=== PATIENT | male | born 1985 | race African-American/Black ===

== ENCOUNTER 2023-01-08 15:48 | Outpatient (CLI) | payer OTHER, SELFPAY ==
[2023-01-08 20:17] LABS: Hepatitis B Surface Antigen* Negative (Negative)
[2023-01-08 20:29] LABS: HIV 1/2/P24 Combo Screen* Negative (Negative)
[2023-01-08 20:35] LABS: Hepatitis C Virus Antibody* Negative (Negative)
[2023-01-08 21:36] LABS: Hepatitis B Surface Antibody* Positive (Negative)
[2023-01-11 02:09] LABS: Rapid Plasma Reagin (RPR) Non Reactive (Non Reactive)
== END 2023-01-08 15:49 | disposition home or self-care (01) ==
PROVIDERS: PCP Family Medicine; Visit Provider Family Medicine
DX: Z11.3 Encounter for screening for infections with a predominantly sexual mode of transmission (principal)
CPT/HCPCS: 86592; 86703; 86706; 86803; 87340

== ENCOUNTER 2023-01-11 08:18 | Outpatient (CLI) | payer OTHER, SELFPAY ==
[2023-01-11 11:32] LABS: Chlamydia DNA Amplified* NOT DETECTED (No Detected); GC DNA Amplified* NOT DETECTED (No Detected)
== END 2023-01-11 08:19 | disposition home or self-care (01) ==
LOC: NFLDREF 08:18
PROVIDERS: PCP Family Medicine; Visit Provider Family Medicine
DX: Z11.3 Encounter for screening for infections with a predominantly sexual mode of transmission (principal)
CPT/HCPCS: 87491; 87591

== ENCOUNTER 2023-06-10 10:05 | Outpatient (CLI) | payer BC, SELFPAY ==
--- NOTE | 2023-06-10 08:53 | W.ANESCHARGE ---
Anesthesia Charges Start Date/Time Anesthesia Start Date: 06/10/23 Anesthesia Start Time: 10:44 Stop Date/Time Anesthesia Stop Date: 06/10/23 Anesthesia Stop Time: 11:11
--- NOTE | 2023-06-10 08:53 | PM.ANHP ---
HPI - Pre-Anesthesia History of Present Illness Time Seen by Provider: 10:34 Date Seen: 06/10/23 Date of service: 06/10/23 Source: patient and old records reviewed Review of Systems Status of ROS Reports: 10 or more systems reviewed and unremarkable except as noted in History and below [facility] Medical History (Updated 04/24/23 @ 13:19 by Nicci Smith MD) Obesity (BMI 30-39.9) ?E66.9 - Obesity, unspecified (ICD-10) Pre-diabetes (2015) ?R73.03 - Prediabetes (ICD-10) History of sleep disturbance ?Z86.69 - Personal history of other diseases of the nervous system and sense organs (ICD-10) History of colonic polyps ?Z86.010 - Personal history of colonic polyps (ICD-10) Elevated liver function tests ?R79.89 - Other specified abnormal findings of blood chemistry (ICD-10) Dyslipidemia ?E78.5 - Hyperlipidemia, unspecified (ICD-10) Surgical History (Updated 12/31/22 @ 14:13 by Nicci Smith MD) No history of previous surgery Family History (Updated 04/24/23 @ 13:31 by Nicci Smith MD) Sister Breast cancer, Onset Age: 55 Family/Other Colon polyps Mother Diabetes Stroke High blood pressure Brother Peptic ulcer Social History (Updated 04/24/23 @ 13:32 by Nicci Smith MD) Narrative: 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, originally from [facility] [place], [facility], 3 kids Walks 5 days a week nonsmoker, rarely consumes alcohol Smoking Status: Never smoker Little interest or pleasure in doing things: not at all Feeling down, depressed, or hopeless: not at all Meds Home Medications and Allergies Home Medications Medication Instructions Recorded Confirmed Type diphenhydramine 25 1 tab PO QHS PRN 04/24/23 04/24/23 History mg-acetaminophen 500 mg tablet (Tylenol PM Extra Strength) Allergies Allergy/AdvReac Type Severity Reaction Status Date / Time No Known Drug Allergies Allergy Verified 04/24/23 12:44 Exam Const Documenting provider has reviewed patient's vital signs: yes Common normals: no apparent distress, oriented x3, healthy appearing, alert and well nourished General appearance: cooperative and comfortable Orientation/consciousness: Yes awake HENMT Common normals: normocephalic Head and scalp: normocephalic Neck & C-Spine Common normals: full ROM Chest Chest: symmetrical chest wall rise Resp Common normals: normal respiratory effort, no retractions, no use of accessory muscles and clear to auscultation bilaterally Auscultation: clear to auscultation bilaterally Cardio Common normals: regular rate, regular rhythm, S1 normal heart sound, S2 normal heart sound and no murmurs Rate: regular rate Rhythm: regular rhythm Heart sounds: S1 normal and S2 normal Neuro Common normals: oriented x3 Sensorium/orientation: awake and alert Assessment and Plan Assessment and plan (1) History of colonic polyps: Status: Acute Plan ok to proceed with sedation
--- NOTE | 2023-06-10 11:11 | W.ANESCHARGE ---
Anesthesia Charges Start Date/Time Anesthesia Start Date: 06/10/23 Anesthesia Start Time: 10:44 Stop Date/Time Anesthesia Stop Date: 06/10/23 Anesthesia Stop Time: 11:11
--- NOTE | 2023-06-10 11:14 | W.ANESCHARGE ---
Anesthesia Charges Start Date/Time Anesthesia Start Date: 06/10/23 Anesthesia Start Time: 10:44 Stop Date/Time Anesthesia Stop Date: 06/10/23 Anesthesia Stop Time: 11:11
== END 2023-06-10 10:06 | disposition home or self-care (01) ==
LOC: OP CLINIC 10:06
PROVIDERS: PCP Family Medicine; Visit Provider Internal Medicine
DX: K62.89 Other specified diseases of anus and rectum (principal); K64.4 Residual hemorrhoidal skin tags; K64.8 Other hemorrhoids
CPT/HCPCS: 00811; 00812; 45378; J2704

== ENCOUNTER 2023-07-22 07:29 | Outpatient (CLI) | payer BC, SELFPAY | END 2023-07-22 07:30 | disposition home or self-care (01) | LOC: NFLDREF 07-24 11:22 | PROVIDERS: PCP Family Medicine; Referring Provider Family Medicine; Visit Provider Family Medicine | DX: I10 Essential (primary) hypertension (principal); E78.5 Hyperlipidemia, unspecified; E11.9 Type 2 diabetes mellitus without complications; E66.9 Obesity, unspecified; R79.89 Other specified abnormal findings of blood chemistry; Z13.21 Encounter for screening for nutritional disorder | CPT/HCPCS: 80053; 80061; 82043; 82570 ==

== ENCOUNTER 2023-10-28 07:29 | Outpatient (CLI) | payer BC, SELFPAY | END 2023-10-28 07:30 | disposition home or self-care (01) | LOC: NFLDREF 10:42 | PROVIDERS: PCP Family Medicine; Referring Provider Family Medicine; Visit Provider Family Medicine | DX: E11.9 Type 2 diabetes mellitus without complications (principal); E78.5 Hyperlipidemia, unspecified; I10 Essential (primary) hypertension; Z13.21 Encounter for screening for nutritional disorder | CPT/HCPCS: 80053; 80061; 82306 ==

== ENCOUNTER 2023-11-18 08:24 | Outpatient (CLI) | payer BC, SELFPAY | END 2023-11-18 08:25 | disposition home or self-care (01) | LOC: NFLDREF 11-19 16:19 | PROVIDERS: PCP Family Medicine; Referring Provider Family Medicine; Visit Provider Family Medicine | DX: I10 Essential (primary) hypertension (principal) | CPT/HCPCS: 80048 ==

== ENCOUNTER 2024-01-27 07:40 | Outpatient (CLI) | payer BC, SELFPAY | END 2024-01-27 07:41 | disposition home or self-care (01) | LOC: NFLDREF 02-06 07:37 | PROVIDERS: PCP Family Medicine; Referring Provider Family Medicine; Visit Provider Family Medicine | DX: E11.9 Type 2 diabetes mellitus without complications (principal); E78.5 Hyperlipidemia, unspecified; I10 Essential (primary) hypertension; R79.89 Other specified abnormal findings of blood chemistry | CPT/HCPCS: 80053; 80061; 82306 ==

== ENCOUNTER 2024-04-28 07:41 | Outpatient (CLI) | payer BC, SELFPAY ==
--- OUTSIDE RECORDS SUMMARY | 2024-04-29 10:20 | XMS_ITS | Clinical Summary ---
Author Organization [employer] [facility] Address [place], [place] [address] Care Team Providers Care Valuation Consultant Name Role Phone None Primary Care Provider Unavailabl e Allergies No known active allergies Medications Medication Sig Dispensed Refills Start Date End Date Status amLODIPine (NORVASC) 5 mg tablet Take 5 mg by mouth two times daily. 09/09/2023 Active metFORMIN (GLUCOPHAGE) 500 mg tablet Take 500 mg by mouth two times daily with meals. 07/24/2023 Active rosuvastatin (CRESTOR) 5 mg tablet Take 5 mg by mouth once daily. 07/24/2023 Active atovaquone-proguani l, 250-100 mg, (MALARONE) 250-100 mg tabletIndications:P harmacologic therapy Take 1 Tablet by mouth once daily. Begin 1-2 days before and continue until 1 week after exposure for prevention of malaria. 30 Tablet 10/09/2023 Active Active Problems Problem Noted Date Diagnosed Date COVID-19 virus infection 12/19/2021 Elevated BP without diagnosis of hypertension Immunizations Name Administration Dates Next Due COVID-19 vaccine (Moderna 100mcg/0.5mL) PF, MDV 03/17/2021,02/17/2021 Hepatitis A (Adult) 10/09/2023 Hepatitis B (Adult) 08/20/2018,12/05/2017,2016 Inactivated Polio Vaccine 10/09/2023 Influenza Virus, Unspecified 10/16/2011,09/29/20 10 Influenza, IIV4 10/09/2023,,10/09/2019,08/20,11/07/2016,08/30/2015 Influenza, Whole Virus 12/05/2017 MMR 12/19/2006(Deferred: Patient Ref used) MMRV 12/19/2006 Measles 10/04/2003 Measles-Rubella 10/04/2003 Meningococcal Vaccine (Menveo) 10/09/2023 Rubella 10/04/2003 Td (Age >=7 Years) 09/06/2003 Td, Preservative Free (age >= 7 Years) Tdap 12/23/2012 Typhoid (injectable) 10/09/2023 Varicella Vaccine 07/25/2017,12/23/2012,12/07/19 12 Yellow Fever 10/09/2023 Social History Tobacco Use Types Packs/Day Years Used Date Smoking Tobacco: Never Smokeless Tobacco: Never Alcohol Use Standard Drinks/Week Comments Not Currently 0 (1 standard drink = 0.6 oz pur e alcohol) Social Connections Answer Date Recorded Frequency of Communication with Friends and Fami ly Not on file 12/19/2021 Financial Resource Strain Answer Date R ecorded Difficulty of Paying Living Expenses Not on file 12/19/2021 Difficulty of Paying Living Expenses Not on file 12/19/2021 Sex and Gender Information Value Date Recorded Sex Assigned at Not on file Gender Identity Not on file Sexual Orientation Not on file Obstetrics History Last Filed Vital Signs Vital Sign Reading Time Taken Comments Blood Pressure 138/80 10/09/2023 1:31 PM UPHOLSTERY COVERS INSPECTOR Pulse 80 10/09/2023 1:31 PM UPHOLSTERY COVERS INSPECTOR Temperature - - Respiratory Rate - - Oxygen Saturation 97% 12/19/2021 11:50 AM UPHOLSTERY COVERS INSPECTOR Inhaled Oxygen Concentration - - Weight 116.6 kg (257 lb) 10/09/2023 1:31 PM UPHOLSTERY COVERS INSPECTOR Height 177.8 cm (5' 10) 10/09/2023 1:31 PM UPHOLSTERY COVERS INSPECTOR Body Mass Index 36.88 10/09/2023 1:31 PM UPHOLSTERY COVERS INSPECTOR Plan of Treatment Health Maintenance Due Date Last Done Comments Depression screening for age 12+ 1995 HIV for age 15-65 1998 Hepatitis C screening for age 18-79 2001 Lipids for age 35-44 2018 COVID-19 vaccine series ( season) 2023 03/17/2021, 02/17/2021 Influenza for age 9-49 2024 3, 09/15/2021, 10/09/2019, Additional history exists BMI (ht and wt on same day) for age 18+ 10/09/2024 10/09/2023 Tetanus booster 2032 2022, 12/03, 09/06/2003 Tdap Completed 12/23/2012 Pneumococcal series for age 6-64 Aged Out No longer eligible based on patient's age to complete this topic Care Teams Valuation Consultant Relationship Specialty Start Date End Date None . PCP - General 12/19/21
== END 2024-04-28 07:42 | disposition home or self-care (01) ==
LOC: NFLDREF 04-29 10:09
PROVIDERS: PCP Family Medicine; Referring Provider Family Medicine; Visit Provider Family Medicine
DX: E78.5 Hyperlipidemia, unspecified (principal); R79.89 Other specified abnormal findings of blood chemistry; I10 Essential (primary) hypertension; E11.9 Type 2 diabetes mellitus without complications; M81.0 Age-related osteoporosis without current pathological fracture
CPT/HCPCS: 80053; 80061; 82043; 82306; 82570

== ENCOUNTER 2024-07-27 07:28 | Outpatient (CLI) | payer BC, SELFPAY ==
--- OUTSIDE RECORDS SUMMARY | 2024-07-31 00:10 | XMS_ITS | Clinical Summary ---
Author Organization [employer] [facility] Address [place], [place] [address] Care Team Providers Care Vacuum Cooker Operator Name Role Phone None Primary Care Provider [...] Comments Blood Pressure 138/80 10/09/2023 1:31 PM WASTE PAPER HAMMERMILL OPERATOR Pulse 80 10/09/2023 1:31 PM WASTE PAPER HAMMERMILL OPERATOR Temperature - - Respiratory Rate - - Oxygen Saturation 97% 12/19/2021 11:50 AM WASTE PAPER HAMMERMILL OPERATOR Inhaled Oxygen Concentration - - Weight 116.6 kg (257 lb) 10/09/2023 1:31 PM WASTE PAPER HAMMERMILL OPERATOR Height 177.8 cm (5' 10) 10/09/2023 1:31 PM WASTE PAPER HAMMERMILL OPERATOR Body Mass Index 36.88 10/09/2023 1:31 PM WASTE PAPER HAMMERMILL OPERATOR Plan of Treatment Health Maintenance Due Date [...] age to complete this topic Care Teams Vacuum Cooker Operator Relationship Specialty Start Date End Date None . PCP - General 12/19/21
== END 2024-07-27 07:29 | disposition home or self-care (01) ==
LOC: NFLDREF 07-31 00:06
PROVIDERS: PCP Family Medicine; Referring Provider Family Medicine; Visit Provider Family Medicine
DX: E78.5 Hyperlipidemia, unspecified (principal); I10 Essential (primary) hypertension; E11.9 Type 2 diabetes mellitus without complications
CPT/HCPCS: 80053; 80061

== ENCOUNTER 2024-11-02 07:54 | Outpatient (CLI) | payer BC, SELFPAY ==
--- OUTSIDE RECORDS SUMMARY | 2024-11-03 07:52 | XMS_ITS | Clinical Summary ---
Author Organization [employer] [facility] Address [place], [place] [address] Care Team Providers Care Supervisor [employer]aking [employer] Name Role Phone None Primary Care Provider [...] Influenza, IIV4 10/09/2023,,10/09/2019,08/20,11/07/2016,08/30/2015 Influenza, Whole Virus 12/05/2017 MENINGOCOCCAL VACCINE 2 VIAL [id number] (MENVEO) 10/09/2023 MMR 12/19/2006(Deferred: Patient Ref used) MMRV 12/19/2006 Measles 10/04/2003 Measles-Rubella 10/04/2003 Rubella 10/04/2003 Td (Age >=7 Years) 09/06/2003 [...] Comments Blood Pressure 138/80 10/09/2023 1:31 PM BAND TUMBLER Pulse 80 10/09/2023 1:31 PM BAND TUMBLER Temperature - - Respiratory Rate - - Oxygen Saturation 97% 12/19/2021 11:50 AM BAND TUMBLER Inhaled Oxygen Concentration - - Weight 116.6 kg (257 lb) 10/09/2023 1:31 PM BAND TUMBLER Height 177.8 cm (5' 10) 10/09/2023 1:31 PM BAND TUMBLER Body Mass Index 36.88 10/09/2023 1:31 PM BAND TUMBLER Plan of Treatment Health Maintenance Due Date Last Done Comments Depression screening for age 12+ 1995 HIV for age 15-65 1998 Hepatitis C screening for age 18-79 2001 Lipids for age 35-44 2018 COVID-19 vaccine series ( season) 2024 03/17/2021, 02/17/2021 Influenza for age 9-49 2024 3, 09/15/2021, 10/09/2019, Additional history exists BMI (ht and wt on same day) for age 18+ 10/09/2024 10/09/2023 Tetanus booster 2032 2022, 12/03, 09/06/2003 Tdap Completed 12/23/2012 Pneumococcal series for age 6-64 Aged Out No longer eligible based on patient's age to complete this topic Care Teams Supervisor [employer]il[employer]aking Shop Relationship Specialty Start Date End Date None . PCP - General 12/19/21
== END 2024-11-02 07:55 | disposition home or self-care (01) ==
LOC: NFLDREF 11-03 07:51
PROVIDERS: PCP Family Medicine; Referring Provider Family Medicine; Visit Provider Family Medicine
DX: I10 Essential (primary) hypertension (principal); E78.5 Hyperlipidemia, unspecified; E11.9 Type 2 diabetes mellitus without complications; E66.9 Obesity, unspecified; R79.89 Other specified abnormal findings of blood chemistry
CPT/HCPCS: 80053; 80061

== ENCOUNTER 2025-04-12 08:06 | Outpatient (CLI) | payer BC, SELFPAY | END 2025-04-12 08:07 | disposition home or self-care (01) | LOC: NFLDREF 04-17 19:41 | PROVIDERS: PCP Family Medicine; Referring Provider Family Medicine; Visit Provider Family Medicine | DX: Z00.01 Encounter for general adult medical examination with abnormal findings (principal); E78.5 Hyperlipidemia, unspecified; E11.9 Type 2 diabetes mellitus without complications; I10 Essential (primary) hypertension; E55.9 Vitamin D deficiency, unspecified; R74.01 Elevation of levels of liver transaminase levels; Z79.84 Long term (current) use of oral hypoglycemic drugs; Z11.59 Encounter for screening for other viral diseases | CPT/HCPCS: 80053; 80061; 82043; 82306; 82550; 82570; 82728; 82977; 84443; 86803; 87340 ==

== ENCOUNTER 2025-04-19 07:08 | Outpatient (CLI) | payer BC, SELFPAY ==
--- NOTE | 2025-04-19 07:15 | CRLHL7_ITS ---
For Patients: As a result of the Century Cures Act, medical imaging exams and procedure reports are released immediately into your electronic medical record. You may view this report before your referring provider. If you have questions, please contact your health care provider. INDICATION: elevated liver transaminase levels COMPARISON: none TECHNIQUE: Real time hardy scale imaging and color Doppler analysis was performed of the right upper quadrant. FINDINGS: Liver measures 18.0 cm. Liver echotexture is diffusely increased. Focal fatty sparing noted. There is a normal appearance of the hepatic IVC and proximal abdominal aorta. There is no evidence of ascites. The gallbladder is of normal size and there is no evidence of intraluminal stones or sludge. The gallbladder wall measures 1 mm in thickness. The common bile duct is of normal size and measures 3 mm in diameter at the level of the roxi hepatis. The visualized pancreas appears normal. There is no evidence of a stone or hydronephrosis within the right kidney. The right kidney measures 11.8 cm in length. Incidental right renal cyst measures 7 x 7 x 8 millimeters. IMPRESSION: Hepatomegaly with hepatic steatosis. Dictated by Clyde Olivier MD @ 04/19/2025 10:59:28 AM (Electronically Signed)
== END 2025-04-19 07:09 | disposition home or self-care (01) ==
PROVIDERS: PCP Family Medicine; Visit Provider Family Medicine
DX: R74.01 Elevation of levels of liver transaminase levels (principal); K76.0 Fatty (change of) liver, not elsewhere classified; R16.0 Hepatomegaly, not elsewhere classified; R79.89 Other specified abnormal findings of blood chemistry
CPT/HCPCS: 76705

== ENCOUNTER 2025-09-20 08:21 | Outpatient (CLI) | payer BC, SELFPAY | END 2025-09-20 08:22 | disposition home or self-care (01) | LOC: NFLDREF 09-22 09:30 | PROVIDERS: PCP Family Medicine; Referring Provider Family Medicine; Visit Provider Family Medicine | DX: R74.01 Elevation of levels of liver transaminase levels (principal); I10 Essential (primary) hypertension; E11.9 Type 2 diabetes mellitus without complications; E78.5 Hyperlipidemia, unspecified; K76.0 Fatty (change of) liver, not elsewhere classified | CPT/HCPCS: 80053; 80061 ==